=== PATIENT | male | born 1935 | race Caucasian/White ===

== ENCOUNTER 2019-01-24 06:04 | Emergency (ER) | payer OTHER, MEDICAID ==
[~2019-01-24] VITALS: Ht 170.2 cm; Wt 85.0 kg
[~2019-01-24 06:04] MED LIST: CELE100C85 PO; CITA10TA5 PO; CLOP75TA19; DOXA2TAB61; GABA300C16 PO; ISEN400; LORA-52 PO; MARA300T4; OXYBUTYNIN 10 MG PO; TOLT4CAP; [UNRECOGNIZED DRUG - OTHER] PO
[2019-01-24 06:07] VITALS: Ht 170.2 cm; Wt 85.0 kg
[2019-01-24] MEDS ORDERED: ALBUTEROL 0.5% (NEB) 2.5 MG/0.5 ML AMP INH STA (06:24)
[2019-01-24] MEDS ORDERED: IPRATROPIUM (NEB) 0.5 MG/2.5 ML AMP INH STA (06:24)
[2019-01-24] MEDS ORDERED: ONDANSETRON 4 MG INJ IV STA ×2 (06:24→10:07)
[2019-01-24] MEDS ORDERED: morphine 4 MG/ML VIAL IV STA (06:24)
[2019-01-24] MEDS ORDERED: SOD CHLORIDE 0.9% 1,000 ML IV STA (06:24)
[2019-01-24] MEDS ORDERED: IODIXANOL LOCM 100 ML BTL ONE (07:54)
[2019-01-24] MEDS ORDERED: SOD CHLORIDE 0.9% 100 ML ONE (07:54)
[2019-01-24] MEDS ORDERED: IOHEXOL 300MG/ML 150 ML BTL ONE (07:54)
--- NOTE | 2019-01-24 08:21 | ERD ---
ER Documentation Chief Complaint Chief Complaint BIB R81. FROM HOME. AP X 1 DAY. NV. HPI This is a very pleasant 83-year-old male who lives at home alone with a history of HIV. The patient is on antiretrovirals. The patient does not know his CD4 count but states his viral load is undetected. The patient indicates that for the past 24 hours he has been complaining of severe abdominal pain. He states the pain is 8 out of 10 in intensity. There is no alleviating or exacerbating factors to the pain. The pain is localized to the left lower quadrant. He also indicates that he has had a productive cough with whitish sputum for roughly 3 days. He had difficulty breathing. He denies any shortness of breath at rest or exertion. He does not smoke tobacco. He denies illicit drug use. He said no recent hospitalizations. The patient denies any chest pain or pressure that radiates to the neck arm back or jaw. He denies any rashes. The patient indicates that he is felt nauseous and had 7 episodes of nonbloody nonbilious emesis this morning prior to arrival. ROS All systems reviewed and are negative except as per history of present illness. Medications Home Meds Reported Medications [Truvadd 200MG] No Conflict Check, PO DAILY 12/29/11 [Oxybutyin Cl Er 10MG] No Conflict Check, PO DAILY 12/29/11 Gabapentin* (Gabapentin*) 300 Mg Capsule, 300 MG PO DAILY 12/29/11 Citalopram Hydrobromide* (Citalopram Hydrobromide*) 10 Mg Tablet, 10 MG PO DAILY 12/29/11 Celecoxib* (Celebrex*) 100 Mg Capsule, 100 MG PO DAILY 12/29/11 Loratadine (Alavert) 10 Mg Tablet, 10 MG PO DAILY 12/29/11 Tolterodine Tartrate* (Detrol LA*) 4 Mg Cap.sr.24h 09/30/09 Clopidogrel Bisulfate (Plavix) 75 Mg Tablet 09/30/09 Maraviroc (Selzentry) 300 Mg Tablet 09/30/09 Doxazosin Mesylate* (Cardura*) 2 Mg Tablet 09/30/09 Raltegravir Potassium* (Isentress*) 400 Mg Tablet 09/30/09 Allergies Allergies: Coded Allergies: No Known Allergy (Verified , 01/05/12) PMhx/Soc History of Surgery: Yes (APPE,TONSILECTOMY) Anesthesia Reaction: No Hx Neurological Disorder: No Hx Respiratory Disorders: Yes (COPD) Hx Cardiac Disorders: Yes (PVD) Hx Psychiatric Problems: No Hx Miscellaneous Medical Probl: Yes (HIV+) Hx Alcohol Use: Yes (OCCASIONAL) Hx Substance Use: No Hx Tobacco Use: No Smoking Status: Never smoker Physical Exam Vitals Vital Signs Date Temp Pulse Resp B/P (MAP) Pulse Ox O2 O2 Flow FiO2 Time Delivery Rate 01/24/19 99.4 92 20 103/62 95 Nasal 2.0 09:18 (76) Cannula 01/24/19 94 2.0 06:38 01/24/19 83 20 94 2.0 06:37 01/24/19 97.8 84 14 99/70 (80) 92 06:07 Physical Exam Constitutional:Well-developed. Well-nourished. HEENT:Normocephalic. Atraumatic.Pupils were equal round reactive to light. Very dry mucous membranes.No tonsillar exudates. Neck: No nuchal rigidity. No lymphadenopathy. No posterior cervical spine tenderness or step-offs. Respiratory: Not using accessory muscles of respiration.Lungs were clear to auscultation bilaterally. No rhonchi. No rales. Wheezing bilaterally Cardiovascular: Regular rate regular rhythm.No murmurs. No rubs were appreciated.S1, S2 normal. Distal pulses are palpable 2+ bilaterally. GI: Abdomen was soft. Left lower quadrant tenderness.. Non Distended. No pulsa tile abdominal masses or bruits. No rebound. No guarding. Bowel sounds were present and normal. Muscle skeletal: Full range of motion of both the upper and lower extremities bilaterally.Normal muscle tone.No assymetrical calf tenderness or swelling. Skin: No petechia, no purpura. No lesions on the palms or the soles of the feet. No maculopapular rash. NEURO: Patient was alert, awake, orientated x3.No facial droop. Gait observed and patient ambulates with a slow steady gait and did require assistance.Speech had regular rate and rhythm. No focal neurological deficits.4 Result Diagram: 01/24/19 0608 01/24/19 0608 Results 24 hrs Laboratory Tests Test 01/24/19 06:08 01/24/19 08:24 White Blood Count 13.9 10^3/ul Red Blood Count 4.60 10^6/ul Hemoglobin 15.4 g/dl Hematocrit 46.7 % Mean Corpuscular Volume 101.5 fl Mean Corpuscular Hemoglobin 33.5 pg Mean Corpuscular Hemoglobin Concent 33.0 g/dl Red Cell Distribution Width 15.4 % Platelet Count 216 10^3/UL Mean Platelet Volume 11.1 fl Immature Granulocytes % 0.500 % Neutrophils % 74.4 % Lymphocytes % 16.9 % Monocytes % 6.5 % Eosinophils % 1.3 % Basophils % 0.4 % Nucleated Red Blood Cells % 0.0 /100WBC Immature Granulocytes # 0.070 10^3/ul Neutrophils # 10.4 10^3/ul Lymphocytes # 2.4 10^3/ul Monocytes # 0.9 10^3/ul Eosinophils # 0.2 10^3/ul Basophils # 0.1 10^3/ul Nucleated Red Blood Cells # 0.0 10^3/ul Prothrombin Time 12.8 Sec Prothrombin Time Ratio 1.0 INR International Normalized Ratio 0.95 Activated Partial Thromboplast Time 32.1 Sec Sodium Level 142 mmol/L Potassium Level 4.0 mmol/L Chloride Level 102 mmol/L Carbon Dioxide Level 30 mmol/L Anion Gap 10 Blood Urea Nitrogen 20 mg/dl Creatinine 1.36 mg/dl Est Glomerular Filtrat Rate mL/min mL/min Glucose Level 140 mg/dl Calcium Level 10.0 mg/dl Total Bilirubin 1.3 mg/dl Direct Bilirubin 0.10 mg/dl Indirect Bilirubin 1.2 mg/dl Aspartate Amino Transf (AST/SGOT) 137 IU/L Alanine Aminotransferase (ALT/SGPT) 65 IU/L Alkaline Phosphatase 446 IU/L Troponin I < 0.012 ng/ml B-Type Natriuretic Peptide 112 PG/ML Total Protein 8.4 g/dl Albumin 4.1 g/dl Globulin 4.30 g/dl Albumin/Globulin Ratio 0.95 Amylase Level 697 U/L Lipase 5254 U/L POC Venous Lactate 2.2 mmol/L Current Medications Medications Dose Sig/Shawn Start Time Status Last (Trade) Ordered Route PRN Stop Time Admin Dose Reason Admin Sodium 1,000 ml @ Q1H STAT 01/24/19 DC 01/24/19 Chloride 1,000 mls/hr IV 06:24 01/24/19 06:29 07:23 Morphine 4 mg ONCE STAT 01/24/19 DC 01/24/19 Sulfate IV 06:24 01/24/19 06:55 (morphine) 06:26 Ondansetron 4 mg ONCE STAT 01/24/19 DC 01/24/19 HCl (Zofran IV 06:24 01/24/19 06:54 Inj) 06:26 Albuterol 10 mg ONCE STAT 01/24/19 DC 01/24/19 (Proventil INH 06:24 01/24/19 06:36 0.5% (Neb)) 06:26 Ipratropium 1 mg ONCE STAT 01/24/19 DC 01/24/19 [place] INH 06:24 01/24/19 06:36 (Atrovent 06:26 0.02% (Neb)) IV Flush 10 ml STK-MED 01/24/19 DC 01/24/19 (NS 10 ml) ONCE .ROUTE 07:54 01/24/19 08:05 07:55 Sodium 100 ml @ ud STK-MED 01/24/19 DC 01/24/19 Chloride ONCE .ROUTE 07:54 01/24/19 08:05 07:55 Iohexol 150 ml STK-MED 01/24/19 DC (Omnipaque ONCE .ROUTE 07:54 01/24/19 300mg/ ml) 07:55 Iodixanol 100 ml STK-MED 01/24/19 DC 01/24/19 (Visipaque ONCE .ROUTE 07:54 01/24/19 08:07 Locm) 07:55 Cefepime HCl 50 ml @ ONCE STAT 01/24/19 DC 01/24/19 100 mls/hr IVPB 08:27 01/24/19 08:39 08:56 Vancomycin 250 ml @ ONCE ONCE 01/24/19 01/24/19 HCl 125 mls/hr IVPB 08:30 01/24/19 09:02 10:29 Sodium 1,550 ml BOLUS OVER 2 01/24/19 DC 01/24/19 Chloride HOURS STAT 08:29 01/24/19 09:40 (NS) IV* 08:31 Procedures/MDM This patient presented to the emergency department with abdominal pain and was seen and evaluated by myself. My differential diagnosis included but was not limited to abdominal aortic aneurysm, appendicitis, pancreatitis, perforated peptic ulcer, perforated viscus, Boerhaaves syndrome or visceral pain such as diverticulitis, DKA, esophagitis, hepatitis or bowel obstruction. The patient was placed on a residential monitor, continuous pulse oximetry, and IV access was established by nursing staff. The patient showed signs of clinical dehydration and actively had an episode of nonbloody nonbilious emesis in the emergency department. The patient was given a liter bolus of normal saline. He was given IV Zofran and Pepcid. For analgesic control the patient was given intravenous morphine 12 Lead EKG tracing ordered and reviewed by myself showed: Normal sinus rhythm of 87 bpm and no arrhythmia. MT interval normal. QRS duration widened at 134 ms with a right bundle branch block. Patient also meets criteria for left ventricular hypertrophy with left axis deviation. No ST segment elevation No ST segment depression. No changes consistent with acute ischemia. The patient had a chest radiograph that was ordered and reviewed by myself. There was pulmonary vascular congestion. However the patient has no underlying history of congestive heart failure. I did still administer IV fluids as the patient was actively vomiting with signs of clinical dehydration and hypotension. Blood cultures and urine cultures were obtained. The patient had a mild eleva tion in his creatinine however due to the severity of his pain he did receive a CT scan of his abdomen. This was with IV contrast and reviewed by the radiologist myself and indicated the following: An early partial small bowel obstruction. There is no ascites. There is no pancreatic mass or pseudocyst. The patient's amylase and lipase was significantly elevated. I do feel the patient's symptoms were exacerbated by acute pancreatitis. The patient was made n.p.o. The patient was refusing an NG tube. The patient was hypertensive upon arrival but his blood pressure did improve after receiving IV fluids. His BMP was normal. There is no evidence of fluid overload despite the pulmonary vascular congestion on chest radiograph. His lactic acid was elevated at 2.2. Therefore once the lactic acid came back the patient was treated for sepsis initially he did not meet Sirs criteria. Janette ent's infectious symptoms have not stabilized and the patient is at risk of rapid decompensation. The patient will be admitted for careful hydration, antibiotic therapy, and infectious source control. Severe Sepsis Assessment: Infectious Source: Unknown source End organ damage indicated by: Lactate > 2.0 mmol/L Severe Sepsis Managment: Blood Cultures X 2 before broad spectrum antibiotics initiated within 3 hours of recognition. 30 ml/kg NS bolus Completed Initial Lactate: 2.2 Repeat Lactate pending Septic Shock Assessment (1 hour post 30 ml/kg fluid bolus): Hypotension (SBP < 90 or 40 mmHg drop, MAP < 65): No Lactic acid > 4.0 No I considered further perfusion assessment with CVP measurement, SCVO2, bedside ultrasound volume assessment, passive leg raise, trial of further fluid bolus. And preceded with IV fluids. I did feel the patient was stable for transfer. He was transferred under the care of [place] after [facility] with [facility]. Critical Care: Time: 70 minutes Treatments/Evaluations: Close monitoring and treatment of unstable vital signs, cardiorespiratory, and neurologic status, while maintaining tight balance of fluid, respiratory, and cardiac interventions. Time does not include performing any of the above billable procedures. Departure Diagnosis: Primary Impression: Small bowel obstruction Additional Impressions: Pancreatitis Chronicity: acute Pancreatitis type: unspecified pancreatitis type Acute pancreatitis complication: unspecified Qualified Codes: K85.90 - Acute pancreatitis without necrosis or infection, unspecified Sepsis Sepsis type: sepsis due to unspecified organism Qualified Codes: A41.9 - Sepsis, unspecified organism Condition: Serious EDDY DHALIWAL MD January 24, 2019 08:21
[2019-01-24] MEDS ORDERED: CEFEPIME 2GM/50 ML (PMX) 50 ML IVPB STA (08:27)
[2019-01-24] MEDS ORDERED: SODIUM CHLORIDE 0.9% 1L BAG IV* STA (08:29)
[2019-01-24] MEDS ORDERED: VANCOMYCIN 1 GM (PMX) 250 ML IVPB ONE (08:30)
[2019-01-24] MEDS ORDERED: HYDROmorphONE 1 MG/ML SYG IV STA (10:07)
[2019-01-24] MEDS ORDERED: AZIT250T13 PO (10:47)
[2019-01-24] MEDS ORDERED: ALBU18HF INHALATION (10:49)
[2019-01-24] MEDS ORDERED: GUAI118L14 PO (10:49)
[2019-01-24] MEDS ORDERED: ISEN400 PO (10:51)
[2019-01-24] MEDS ORDERED: ATOR40TA68 PO (10:52)
[2019-01-24] MEDS ORDERED: MARA150T4 PO (10:52)
[2019-01-24] MEDS ORDERED: FURO20TA3 PO (10:53)
[2019-01-24] MEDS ORDERED: CLOP75TA19 PO (10:53)
[2019-01-24] MEDS ORDERED: GABA300C16 PO (10:53)
[2019-01-24] MEDS ORDERED: BIKTARVY PO (10:57)
[2019-01-24 11:22] VITALS: BP 96/74; PULSE 90; RESP 19
== END 2019-01-24 12:15 | disposition short-term general hospital (02) ==
LOC: E/R 06:04
DX: K56.609 Unspecified intestinal obstruction, unspecified as to partial versus complete obstruction (principal); J44.9 Chronic obstructive pulmonary disease, unspecified; K85.90 Acute pancreatitis without necrosis or infection, unspecified; A41.9 Sepsis, unspecified organism; R40.2142 Coma scale, eyes open, spontaneous, at arrival to emergency department; R40.2362 Coma scale, best motor response, obeys commands, at arrival to emergency department; R40.2252 Coma scale, best verbal response, oriented, at arrival to emergency department; Z21 Asymptomatic human immunodeficiency virus [HIV] infection status; Z79.01 Long term (current) use of anticoagulants
CPT/HCPCS: 36415; 71045; 74177; 80053; 82150; 83605; 83690; 83880; 84484; 85025; 85610; 85730; 86360; 87040; 93005; 94644; 96365; 96366; 96367; 96375; 96376; 99285; J0692; J2270; J2405; J3370; J7030; Q9967